=== PATIENT | female | born 1985 | race American Indian/Alaskan Native ===

== ENCOUNTER 2018-08-25 16:11 | Emergency (ER) | payer MEDICAID ==
[2018-08-25 17:50] LABS: BUN/Creatinine Ratio 18; Blood Urea Nitrogen 11 mg/dL (7-17); Calcium 8.5 mg/dL (8.4-10.2); Hemolysis Index 4
[2018-08-25] MEDS ORDERED: TYLENOL PO ONE (17:51)
[2018-08-25 17:52] LABS: Basophils # (Auto) 0.1 K/mm3 (0.0-0.1); Basophils % (Auto) 0.8 % (0.0-1.8); Eosinophils % (Auto) 0.4 % (0.0-4.3); Hematocrit 31.6 % (30.3-42.9); Lymphocytes # (Auto) 0.5 K/mm3 (1.2-5.4); Lymphocytes % (Auto) 8.5 % (13.4-35.0); Mean Corpuscular HGB Conc 32 % (30-34); Mean Corpuscular Volume 74 fl (79-97); Monocytes # (Auto) 0.7 K/mm3 (0.0-0.8); Monocytes % (Auto) 10.9 % (0.0-7.3); Platelet Count 260 K/mm3 (140-440); Red Blood Count 4.29 M/mm3 (3.65-5.03); Red Cell Distribution Width 17.5 % (13.2-15.2)
[2018-08-25] MEDS ORDERED: TYLENOL ONE (17:54)
--- NOTE | 2018-08-25 18:03 | XRay Report ---
FINAL REPORT EXAM: XR CHEST ROUTINE 2V HISTORY: shortness of breath TECHNIQUE: PA and lateral views of the chest Comparison: None FINDINGS: There is bilateral hypoinflation with crowding of the bronchovascular structures. There prominence of the interstitial markings with peribronchial thickening. This may represent cosby es of bronchiolitis. There is no definite evidence of focal infiltrate and no evidence of pneumothorax or pleural fluid co llection. The cardiomediastinal silhouette is normal in appearance. The bony structures are unremarkable. IMPRESSION: 1. Hypoinflation. 2. Prominence of the interstitial markings with peribronchial thickening which may represent changes of bronchiolitis. If further imaging is required, CT chest may be helpful.
[2018-08-25] MEDS ORDERED: TESSALON PERLES PO ONE ×2 (18:29→21:37)
[2018-08-25] MEDS ORDERED: ZITHROMAX PO ONE (18:29)
[2018-08-25] MEDS ORDERED: NACL 0.9% 1000 ML 1,000 ML IV ONE (18:29)
[2018-08-25] MEDS ORDERED: TORADOL IV ONE (18:29)
--- NOTE | 2018-08-25 18:33 | Emergency Department Report ---
- General Chief Complaint: Upper Respiratory Infection Stated Complaint: FLU SYMPTOMS Time Seen by Provider: 08/25/18 18:22 Source: patient Mode of arrival: Ambulatory Limitations: No Limitations - History of Present Illness Initial Comments: 32-year-old female with no symptoms past medical history presents to the hospital complaining of cough and cold symptoms 3 days. Patient will cough productive of green sputum. Generalized body aches rated 9/10 in intensity. Chest pain with coughing episodes. Bitemporal headache reported. Intermittent fevers at home reported. Patient presents today with a fever. She denies receiving her flu shot, known sick contacts, or recent international travel. She denies wheezing, shortness of breath, nausea, vomiting, or diarrhea. She did not receive a flu shot this year. - Related Data Previous Rx's Medication Instructions Recorded Last Taken Type Azithromycin [Zithromax Z-NYDIA] 1 dose PO DAILY 5 Days tab 08/25/18 Unknown Rx Benzonatate [Tessalon Perles] 100 mg PO Q8HR PRN #30 capsule 08/25/18 Unknown Rx Oseltamivir [Tamiflu] 75 mg PO BID #10 cap 08/25/18 Unknown Rx traMADol [Ultram 50 MG tab] 50 mg PO Q6HR PRN #20 tablet 08/25/18 Unknown Rx Allergies Allergy/AdvReac Type Severity Reaction Status Date / Time No Known Allergies Allergy Unverified 08/25/18 16:45 ED Review of Systems ROS: Stated complaint: FLU SYMPTOMS Other details as noted in HPI Comment: All other systems reviewed and negative ED Past Medical Hx - Past Medical History Previous Medical History?: Yes - Surgical History Past Surgical History?: Yes Additional Surgical History: 'Tummy tuck' - Social History Smoking Status: Current Every Day Smoker Substance Use Type: Non Opiate Pain, Other - Medications Home Medications: Home Medications Medication Instructions Recorded Confirmed Last Taken Type Azithromycin [Zithromax Z-NYDIA] 1 dose PO DAILY 5 Days tab 08/25/18 Unknown Rx Benzonatate [Tessalon Perles] 100 mg PO Q8HR PRN #30 capsule 08/25/18 Unknown Rx Oseltamivir [Tamiflu] 75 mg PO BID #10 cap 08/25/18 Unknown Rx traMADol [Ultram 50 MG tab] 50 mg PO Q6HR PRN #20 tablet 08/25/18 Unknown Rx ED Physical Exam - General Limitations: No Limitations - Other Other exam information: General: No limitations, patient is alert in no acute distress Head exam: Atraumatic, normocephalic Eyes exam: Normal appearance, pupils equal reactive to light, extraocular movements intact ENT: Moist mucous membrane. No frontal or maxillary sinus tenderness Neck exam: Normal inspection, full range of motion, no meningismus nontender Respiratory exam: Clear to auscultation bilateral, no wheezes, rales, crackles Cardiovascular: Tachycardic regular rhythm Abdomen: Soft, nondistended, and nontender, with normal bowel sounds, no fiordaliza ound, or guarding Extremity: Full range of motion normal inspection no deformity Back: Normal Inspection, full range of motion, no tenderness Neurologic: Alert, oriented x3, cranial nerves intact, no motor or sensory deficit Psychiatric: normal affect, normal mood Skin: Warm, dry, intact, no rash ED Course Vital Signs 08/25/18 08/25/18 08/25/18 16:45 18:53 19:00 Temperature 102.4 F H Pulse Rate 122 H Respiratory 20 16 16 Rate Blood Pressure 134/82 Blood Pressure [Left] O2 Sat by Pulse 100 99 Oximetry 08/25/18 08/25/18 19:26 21:33 Temperature 101.4 F H 99.4 F Pulse Rate 98 H 108 H Respiratory 16 16 Rate Blood Pressure Blood Pressure 125/78 118/72 [Left] O2 Sat by Pulse 100 99 Oximetry ED Medical Decision Making - Lab Data Result diagrams: 08/25/18 17:15 08/25/18 17:15 Lab Results 08/25/18 08/25/18 08/25/18 Range/Units 17:15 17:15 17:15 WBC 6.4 (4.5-11.0) K/mm3 RBC 4.29 (3.65-5.03) M/mm3 Hgb 10.0 L (10.1-14.3) gm/dl Hct 31.6 (30.3-42.9) % MCV 74 L (79-97) fl MCH 23 L (28-32) pg MCHC 32 (30-34) % RDW 17.5 H (13.2-15.2) % Plt Count 260 (140-440) K/mm3 Lymph % (Auto) 8.5 L (13.4-35.0) % [place] % (Auto) 10.9 H (0.0-7.3) % Eos % (Auto) 0.4 (0.0-4.3) % Baso % (Auto) 0.8 (0.0-1.8) % Lymph # 0.5 L (1.2-5.4) K/mm3 [place] # 0.7 (0.0-0.8) K/mm3 Eos # 0.0 (0.0-0.4) K/mm3 Baso # 0.1 (0.0-0.1) K/mm3 Seg Neutrophils % 79.4 H (40.0-70.0) % Seg Neutrophils # 5.1 (1.8-7.7) K/mm3 Sodium 136 L (137-145) mmol/L Potassium 3.6 (3.6-5.0) mmol/L Chloride 99.7 (98-107) mmol/L Carbon Dioxide 24 (22-30) mmol/L Anion Gap 16 mmol/L BUN 11 (7-17) mg/dL Creatinine 0.6 L (0.7-1.2) mg/dL Estimated GFR > 60 ml/min BUN/Creatinine Ratio 18 % Glucose 100 (65-100) mg/dL Lactic Acid 1.50 (0.7-2.0) mmol/L Calcium 8.5 (8.4-10.2) mg/dL Influenza A (Rapid) (Negative) Influenza B (Rapid) (Negative) 08/25/18 Range/Units 18:20 WBC (4.5-11.0) K/mm3 RBC (3.65-5.03) M/mm3 Hgb (10.1-14.3) gm/dl Hct (30.3-42.9) % MCV (79-97) fl MCH (28-32) pg MCHC (30-34) % RDW (13.2-15.2) % Plt Count (140-440) K/mm3 Lymph % (Auto) (13.4-35.0) % [place] % (Auto) (0.0-7.3) % Eos % (Auto) (0.0-4.3) % Baso % (Auto) (0.0-1.8) % Lymph # (1.2-5.4) K/mm3 [place] # (0.0-0.8) K/mm3 Eos # (0.0-0.4) K/mm3 Baso # (0.0-0.1) K/mm3 Seg Neutrophils % (40.0-70.0) % Seg Neutrophils # (1.8-7.7) K/mm3 Sodium (137-145) mmol/L Potassium (3.6-5.0) mmol/L Chloride (98-107) mmol/L Carbon Dioxide (22-30) mmol/L Anion Gap mmol/L BUN (7-17) mg/dL Creatinine (0.7-1.2) mg/dL Estimated GFR ml/min BUN/Creatinine Ratio % Glucose (65-100) mg/dL Lactic Acid (0.7-2.0) mmol/L Calcium (8.4-10.2) mg/dL Influenza A (Rapid) Positive A (Negative) Influenza B (Rapid) Negative (Negative) - Radiology Data Radiology results: report reviewed FINAL REPORT EXAM: XR CHEST ROUTINE 2V HISTORY: shortness of breath TECHNIQUE: PA and lateral views of the chest Comparison: None FINDINGS: There is bilateral hypoinflation with crowding of the bronchovascular structures. There prominence of the interstitial markings with peribronchial thickening. This may represent changes of bronchiolitis. There is no definite evidence of focal infiltrate and no evidence of pneumothorax or pleural fluid collection. The cardiomediastinal silhouette is normal in appearance. The bony structures are unremarkable. IMPRESSION: 1. Hypoinflation. 2. Prominence of the interstitial markings with peribronchial thickening which may represent changes of bronchiolitis. If further imaging is required, CT chest may be helpful. - Medical Decision Making Influenza positive. Patient will be prescribed Tamiflu. Also, with a Z-Nydia given chest x-ray findings although likely viral. Patient does not have wheezing, shortness of breath or hypoxia. Follow-up will be encouraged. - Differential Diagnosis viral syndrome, influenza, pneumonia, bronchitis, URI Critical Care Time: No Critical care attestation.: If time is entered above; I have spent that time in minutes in the direct care of this critically ill patient, excluding procedure time. ED Disposition Clinical Impression: Influenza A, Bronchiolitis Disposition: DC- TO HOME OR SELFCARE Is pt being admited?: No Does the pt Need Aspirin: No Condition: Stable Instructions: Influenza (ED) Additional Instructions: Take the medication as prescribed. Follow up with your doctor or the doctors/clinic provided. Return if symptoms worsen as indicated by your discharge instructions Prescriptions: Azithromycin [Zithromax Z-NYDIA] 1 dose PO DAILY 5 Days tab Benzonatate [Tessalon Perles] 100 mg PO Q8HR PRN #30 capsule PRN Reason: Cough Oseltamivir [Tamiflu] 75 mg PO BID #10 cap traMADol [Ultram 50 MG tab] 50 mg PO Q6HR PRN #20 tablet PRN Reason: Pain Referrals: PRIMARY CARE, [Primary Care Provider] - 3-5 Days [facility] [Provider Group] - 3-5 Days TY CROCKER [Staff Physician] - 3-5 Days Time of Disposition: 22:48
[2018-08-25] MEDS ORDERED: DILAUDID IV ONE (22:52)
[2018-08-25 23:54] VITALS: BP 120/74
== END 2018-08-25 23:54 | disposition home or self-care (01) ==
LOC: ED 16:11
DX: J09.X2 Influenza due to identified novel influenza A virus with other respiratory manifestations (principal); J21.9 Acute bronchiolitis, unspecified; F17.200 Nicotine dependence, unspecified, uncomplicated
CPT/HCPCS: 36415; 71046; 80048; 82140; 85025; 87040; 87400; 93005; 93010; 96374; 99284; J1885; J7030; 96361

== ENCOUNTER 2019-09-21 22:41 | Emergency (ER) | payer MEDICAID ==
[2019-09-22 05:20] VITALS: BP 139/91
[2019-09-22] MEDS ORDERED: BENZONATATE 100 MG CAP PO ONE (07:24)
[2019-09-22] MEDS ORDERED: IBUPROFEN 800 MG TAB PO ONE (07:24)
--- NOTE | 2019-09-22 08:24 | XRay Report ---
CHEST 2 VIEWS INDICATION / CLINICAL INFORMATION: cough. COMPARISON: 08/25/2018. FINDINGS: SUPPORT DEVICES: None. HEART / MEDIASTINUM: No significant abnormality. LUNGS / PLEURA: There is mild groundglass parenchymal opacification in the right lower lung. No signi ficant effusion. No pneumothorax. ADDITIONAL FINDINGS: No significant additional findings. IMPRESSION: 1. Mild groundglass parenchymal opacification in the right lower lung can indicate developing infecti ous or inflammatory process. Signer Name: Hector Samaniego MD Signed: 09/22/2019 8:19 AM Workstation Name: [id number]
--- NOTE | 2019-09-22 08:48 | Emergency Department Report ---
Upper Respiratory HPI - HPI Chief Complaint: Upper Respiratory Infection Stated Complaint: COUGH/HEADACHE Time Seen by Provider: 09/22/19 07:23 Duration: 1 Day URI Symptoms: Rhinorrhea: Yes, Sore Throat: No, Ear Pain: Yes, Cough: Yes, Shortness of Breath: No, Sick Contacts: No, Unable to Take Fluids: No, Urine Output Abnormal: No, Listless Behavior: No Other History: This is a 34-year-old female nontoxic, well nourished in appearance, no acute signs of distress presents to the ED with c/o of productive cough, earache, frontal sinus pain, body aches, rhinorrhea, nasal congestion x1 day. Patient describes productive cough as yellow mucus production. Patient denies any sick contacts. Patient denies any recent travels, long car, recent hospital stays. Patient denies any calf pain or calf tenderness. Patient denies any chest pain, short of breath, fever, chills, nausea, vomiting, hemoptysis, numbness, tingling, headache or stiff neck. Patient denies any allergies or significant PMH. - Home Meds and Allergies Home Medications: Previous Rx's Medication Instructions Recorded Last Taken Type Azithromycin [Zithromax Z-NYDIA] 1 dose PO DAILY 5 Days tab 08/25/18 Unknown Rx Benzonatate [Tessalon Perles] 100 mg PO Q8HR PRN #30 capsule 08/25/18 Unknown Rx Oseltamivir [Tamiflu] 75 mg PO BID #10 cap 08/25/18 Unknown Rx traMADoL [Ultram 50 MG tab] 50 mg PO Q6HR PRN #20 tablet 08/25/18 Unknown Rx Azithromycin [Zithromax Z-NYDIA] 250 mg PO DAILY #6 tablet 09/22/19 Unknown Rx Benzonatate [Tessalon Perles] 100 mg PO Q8HR PRN #20 capsule 09/22/19 Unknown Rx Ibuprofen [Motrin] 600 mg PO Q8H PRN #20 tablet 09/22/19 Unknown Rx Allergies/Adverse Reactions: Allergies Allergy/AdvReac Type Severity Reaction Status Date / Time No Known Allergies Allergy Unverified 08/25/18 16:45 ED Review of Systems ROS: Stated complaint: COUGH/HEADACHE Other details as noted in HPI Constitutional: denies: chills, fever Eyes: denies: eye pain, eye discharge, vision change ENT: ear pain, congestion. denies: throat pain Respiratory: cough. denies: shortness of breath, wheezing Cardiovascular: denies: chest pain, palpitations Endocrine: no symptoms reported Gastrointestinal: denies: abdominal pain, nausea, diarrhea Genitourinary: denies: urgency, dysuria, discharge Musculoskeletal: denies: back pain, joint swelling, arthralgia Skin: denies: rash, lesions Neurological: denies: headache, weakness, paresthesias Psychiatric: denies: anxiety, depression Hematological/Lymphatic: denies: easy bleeding, easy bruising ED Past Medical Hx - Past Medical History Previous Medical History?: No - Surgical History Past Surgical History?: Yes Additional Surgical History: 'Tummy tuck' - Social History Smoking Status: Current Every Day Smoker Substance Use Type: None - Medications Home Medications: Home Medications Medication Instructions Recorded Confirmed Last Taken Type Azithromycin [Zithromax Z-NYDIA] 1 dose PO DAILY 5 Days tab 08/25/18 Unknown Rx Benzonatate [Tessalon Perles] 100 mg PO Q8HR PRN #30 capsule 08/25/18 Unknown Rx Oseltamivir [Tamiflu] 75 mg PO BID #10 cap 08/25/18 Unknown Rx traMADoL [Ultram 50 MG tab] 50 mg PO Q6HR PRN #20 tablet 08/25/18 Unknown Rx Azithromycin [Zithromax Z-NYDIA] 250 mg PO DAILY #6 tablet 09/22/19 Unknown Rx Benzonatate [Tessalon Perles] 100 mg PO Q8HR PRN #20 capsule 09/22/19 Unknown Rx Ibuprofen [Motrin] 600 mg PO Q8H PRN #20 tablet 09/22/19 Unknown Rx ED Bronchiolitis Physical Exam - Exam General: Vital signs noted. No distress. Alert and acting appropriately. Neurologic: Alert and oriented, no deficits. Musculoskeletal: Unremarkable. ED Bronchiolitis Tests - Testing Testing: CXR: Normal/Negative ED Physical Exam - General Limitations: No Limitations General appearance: alert, in no apparent distress - Head Head exam: Present: atraumatic, normocephalic - Eye Eye exam: Present: normal appearance - Expanded ENT Exam Expanded Ear exam: Present: normal external inspection TM/Canal exam: Erythema: Right TM, Bulging: Right TM Mouth exam: Present: normal external inspection Teeth exam: Present: normal inspection Throat exam: Positive: normal inspection. Negative: tonsillar erythema, tonsillomegaly, tonsillar exudate, R peritonsillar mass, L peritonsillar mass - Neck Neck exam: Present: normal inspection, full ROM. Absent: tenderness, meningismus, lymphadenopathy - Respiratory Respiratory exam: Present: normal lung sounds bilaterally. Absent: respiratory distress, wheezes, rales, rhonchi, stridor, chest wall tenderness, accessory muscle use, decreased breath sounds, prolonged expiratory - Cardiovascular Cardiovascular Exam: Present: regular rate, normal rhythm, normal heart sounds. Absent: irregular rhythm, systolic murmur, diastolic murmur, rubs, gallop - Extremities Exam Extremities exam: Present: normal inspection, full ROM - Back Exam Back exam: Present: normal inspection, full ROM - Neurological Exam Neurological exam: Present: alert, oriented X3, normal gait - Psychiatric Psychiatric exam: Present: normal affect, normal mood - Skin Skin exam: Present: warm, dry, intact, normal color. Absent: rash ED Course Vital Signs 09/21/19 09/22/19 23:15 05:17 Temperature 98.8 F 97.7 F Pulse Rate 96 H 89 Respiratory 18 16 Rate Blood Pressure 147/87 139/91 O2 Sat by Pulse 100 99 Oximetry - Reevaluation(s) Reevaluation #1: 09/22/19 08:49 Patient is speaking in full sentences with no signs of distress noted. ED Medical Decision Making - Medical Decision Making This is a 34-year-old female that presents with bronchitis and otitis media. Patient is stable and was examined by me. Chest x-ray has been obtained and dictated by radiologist with normal exam. Patient is notified of x-ray results with no questions noted. Will treat patient with zpak. Patient was instructed to increase hydration, rest and take Motrin for fever episodes. Patient received motrin and tesslone perrls in the ED. Vitals stable. Patient is nonfebrile and normal heart rate. Patient was instructed Follow-up with a primary care doctor in 3-5 days or if symptoms worsen and continue return to emergency room as soon as possible. At time time of discharge, the patient does not seem toxic or ill in appearance. No acute signs of distress noted. Patient agrees to discharge treatment plan of care. No further questions noted by the patient. Critical care attestation.: If time is entered above; I have spent that time in minutes in the direct care of this critically ill patient, excluding procedure time. ED Disposition Clinical Impression: Bronchitis Otitis media Qualifiers: Otitis media type: unspecified Chronicity: acute Qualified Code(s): H66.90 - Otitis media, unspecified, unspecified ear Disposition: - TO HOME OR SELFCARE Is pt being admited?: No Does the pt Need Aspirin: No Condition: Stable Instructions: Acute Bronchitis (ED), Otitis Media (ED) Additional Instructions: Follow-up with a primary care doctor in 3-5 days or if symptoms worsen and continue return to emergency room as soon as possible. Prescriptions: Ibuprofen [Motrin] 600 mg PO Q8H PRN #20 tablet PRN Reason: Pain/Fever Benzonatate [Tessalon Perles] 100 mg PO Q8HR PRN #20 capsule PRN Reason: Cough Azithromycin [Zithromax Z-NYDIA] 250 mg PO DAILY #6 tablet Referrals: PRIMARY MD NINA [Primary Care Provider] - 3-5 Days TY CROCKER MD [Staff Physician] - 3-5 Days [facility] [Outside] - 3-5 Days Forms: Work/School Release Form(ED)
== END 2019-09-22 09:05 | disposition home or self-care (01) ==
LOC: ED 22:41
DX: J40 Bronchitis, not specified as acute or chronic (principal); H66.90 Otitis media, unspecified, unspecified ear; F17.200 Nicotine dependence, unspecified, uncomplicated; Z79.1 Long term (current) use of non-steroidal anti-inflammatories (NSAID); Z79.899 Other long term (current) drug therapy
CPT/HCPCS: 71046

== ENCOUNTER 2020-04-19 15:23 | Emergency (ER) | payer BC, MEDICAID ==
[2020-04-19 16:37] VITALS: BP 155/92
--- NOTE | 2020-04-19 17:13 | Event Note ---
ED Screening Note Date of service: 04/19/20 Time: 17:12 ED Screening Note: 34-year-old female presents the ED complaining of lower abdominal/pelvic pain x4 days. LMP: 03/24/2020 Denies fever, meds nausea and diarrhea This initial assessment/diagnostic orders/clinical plan/treatment(s) is/are subject to change based on patients health status, clinical progression and re- assessment by fellow clinical providers in the ED. Further treatment and workup at subsequent clinical providers discretion. Patient/guardian urged not to elope from the ED as their condition may be serious if not clinically assessed and managed. Initial orders include: ua,upt CBC, CMP
[2020-04-19 17:57] LABS: Basophils % (Auto) 0.5 % (0.0-1.8); Eosinophils # (Auto) 0.1 K/mm3 (0.0-0.4); Eosinophils % (Auto) 0.9 % (0.0-4.3); Hematocrit 28.5 % (30.3-42.9); Hemoglobin 9.5 gm/dl (10.1-14.3); Lymphocytes # (Auto) 1.9 K/mm3 (1.2-5.4); Lymphocytes % (Auto) 27.7 % (13.4-35.0); Mean Corpuscular HGB Conc 33 % (30-34); Monocytes # (Auto) 0.5 K/mm3 (0.0-0.8); Monocytes % (Auto) 7.2 % (0.0-7.3); Platelet Count 378 K/mm3 (140-440); Red Blood Count 4.31 M/mm3 (3.65-5.03)
[2020-04-19 18:34] LABS: Mean Corpuscular Volume 66 fl (79-97)
[2020-04-19 18:36] LABS: Alanine Aminotransferase 15 units/L (7-56); Albumin 3.9 g/dL (3.9-5); Blood Urea Nitrogen 13 mg/dL (7-17); Calcium 8.9 mg/dL (8.4-10.2); Hemolysis Index 3
[2020-04-19 18:37] LABS: BUN/Creatinine Ratio 22
[2020-04-19 19:42] LABS: Bilirubin,Urine NEG (Negative); Blood,Urine NEG (Negative); Color,Urine Yellow (Yellow); Mucus,Urine 3+ /HPF; Protein,Urine <15 mg/dL mg/dL (Negative); Urobilinogen,Urine < 2.0 mg/dL (<2.0)
[2020-04-19 19:50] LABS: HCG Qualitative,Urine Negative (Negative)
--- NOTE | 2020-04-19 20:18 | Emergency Department Report ---
ED General Adult HPI - General Chief complaint: Abdominal Pain Stated complaint: ABD PAIN Time Seen by Provider: 04/19/20 19:15 Source: patient Mode of arrival: Ambulatory Limitations: No Limitations - History of Present Illness Initial comments: 34-year-old -Armenian female patient without prior medical history presents with complaints of intermittent right lower quadrant pain x4 days. Patient states she has had 3 episodes of cramping pain in the right lower quadrant the last about 3 minutes at a time. She states she then has a bowel movement that is loose and not watery in a day and her pain is relieved. She denies any melena/hematochezia, nausea/vomiting, recent antibiotic use, or current abdominal pain. She states when the pain does come it is about a 5/10 in severity. She also denies any history of ovarian cysts, abnormal vaginal bleeding, vaginal discharge, dysuria/hematuria/urinary frequency, dyspareunia, or concern for STIs. Abdominal surgical history includes a tummy tuck in 2016 per patient -: Sudden Severity scale (0 -10): 0 - Related Data Previous Rx's Medication Instructions Recorded Last Taken Type Azithromycin [Zithromax Z-NYDIA] 1 dose PO DAILY 5 Days tab 08/25/18 Unknown Rx Benzonatate [Tessalon Perles] 100 mg PO Q8HR PRN #30 capsule 08/25/18 Unknown Rx Oseltamivir [Tamiflu] 75 mg PO BID #10 cap 08/25/18 Unknown Rx traMADoL [Ultram 50 MG tab] 50 mg PO Q6HR PRN #20 tablet 08/25/18 Unknown Rx Azithromycin [Zithromax Z-NYDIA] 250 mg PO DAILY #6 tablet 09/22/19 Unknown Rx Benzonatate [Tessalon Perles] 100 mg PO Q8HR PRN #20 capsule 09/22/19 Unknown Rx Ibuprofen [Motrin] 600 mg PO Q8H PRN #20 tablet 09/22/19 Unknown Rx Butalb/Acetaminophen/Caffeine 1 cap PO Q8HR PRN #12 cap 02/08/20 Unknown Rx [Fioricet 50-300-40 mg CAP] Dicyclomine [Bentyl] 20 mg PO QID PRN #20 tablet 04/19/20 Unknown Rx Allergies Allergy/AdvReac Type Severity Reaction Status Date / Time No Known Allergies Allergy Verified 08/31/20 16:34 ED Review of Systems ROS: Stated complaint: ABD PAIN Other details as noted in HPI Constitutional: denies: chills, diaphoresis, fever, malaise, weakness ENT: denies: throat pain Respiratory: denies: cough, shortness of breath Cardiovascular: denies: chest pain Endocrine: denies: excessive sweating Gastrointestinal: abdominal pain. denies: nausea, vomiting, diarrhea, constipation, hematemesis, melena, hematochezia Genitourinary: denies: urgency, dysuria, frequency, hematuria, discharge, abnormal menses Skin: denies: rash, lesions, change in color Neurological: denies: headache, paresthesias Hematological/Lymphatic: denies: easy bleeding, easy bruising, swollen glands ED Past Medical Hx - Past Medical History Previous Medical History?: No - Surgical History Past Surgical History?: Yes Additional Surgical History: 'Tummy tuck' - Social History Smoking Status: Never Smoker Substance Use Type: None - Medications Home Medications: Home Medications Medication Instructions Recorded Confirmed Last Taken Type Azithromycin [Zithromax Z-NYDIA] 1 dose PO DAILY 5 Days tab 08/25/18 Unknown Rx Benzonatate [Tessalon Perles] 100 mg PO Q8HR PRN #30 capsule 08/25/18 Unknown Rx Oseltamivir [Tamiflu] 75 mg PO BID #10 cap 08/25/18 Unknown Rx traMADoL [Ultram 50 MG tab] 50 mg PO Q6HR PRN #20 tablet 08/25/18 Unknown Rx Azithromycin [Zithromax Z-NYDIA] 250 mg PO DAILY #6 tablet 09/22/19 Unknown Rx Benzonatate [Tessalon Perles] 100 mg PO Q8HR PRN #20 capsule 09/22/19 Unknown Rx Ibuprofen [Motrin] 600 mg PO Q8H PRN #20 tablet 09/22/19 Unknown Rx Butalb/Acetaminophen/Caffeine 1 cap PO Q8HR PRN #12 cap 02/08/20 Unknown Rx [Fioricet 50-300-40 mg CAP] Dicyclomine [Bentyl] 20 mg PO QID PRN #20 tablet 04/19/20 Unknown Rx ED Physical Exam - General Limitations: No Limitations General appearance: alert, in no apparent distress, obese - Head Head exam: Present: atraumatic, normocephalic - Eye Eye exam: Present: normal appearance. Absent: scleral icterus - Respiratory Respiratory exam: Present: normal lung sounds bilaterally. Absent: respiratory distress - Cardiovascular Cardiovascular Exam: Present: regular rate, normal rhythm. Absent: systolic murmur, diastolic murmur, rubs, gallop - GI/Abdominal GI/Abdominal exam: Present: soft, normal bowel sounds. Absent: distended, te nderness, guarding, rebound, rigid - Extremities Exam Extremities exam: Present: normal inspection - Back Exam Back exam: Present: normal inspection, full ROM. Absent: CVA tenderness (R), CVA tenderness (L) - Neurological Exam Neurological exam: Present: alert, oriented X3 - Psychiatric Psychiatric exam: Present: normal affect, normal mood - Skin Skin exam: Present: warm, dry, intact, normal color. Absent: rash, cyanosis, diaphoretic, erythema, petechiae, pallor, ecchymosis ED Course Vital Signs 04/19/20 16:34 Temperature 97.8 F Pulse Rate 101 H Respiratory 18 Rate Blood Pressure 155/92 [Right] O2 Sat by Pulse 99 Oximetry ED Medical Decision Making - Lab Data Result diagrams: 04/19/20 17:31 04/19/20 17:31 Lab Results 04/19/20 04/19/20 04/19/20 Range/Units 17:31 17:31 18:37 WBC 6.9 (4.5-11.0) K/mm3 RBC 4.31 (3.65-5.03) M/mm3 Hgb 9.5 L (10.1-14.3) gm/dl Hct 28.5 L (30.3-42.9) % MCV 66 L (79-97) fl MCH 22 L (28-32) pg MCHC 33 (30-34) % RDW 19.0 H (13.2-15.2) % Plt Count 378 (140-440) K/mm3 Lymph % (Auto) 27.7 (13.4-35.0) % [place] % (Auto) 7.2 (0.0-7.3) % Eos % (Auto) 0.9 (0.0-4.3) % Baso % (Auto) 0.5 (0.0-1.8) % Lymph # 1.9 (1.2-5.4) K/mm3 [place] # 0.5 (0.0-0.8) K/mm3 Eos # 0.1 (0.0-0.4) K/mm3 Baso # 0.0 (0.0-0.1) K/mm3 Seg Neutrophils % 63.7 (40.0-70.0) % Seg Neutrophils # 4.4 (1.8-7.7) K/mm3 Sodium 139 (137-145) mmol/L Potassium 4.0 (3.6-5.0) mmol/L Chloride 102.5 (98-107) mmol/L Carbon Dioxide 26 (22-30) mmol/L Anion Gap 15 mmol/L BUN 13 (7-17) mg/dL Creatinine 0.6 (0.6-1.2) mg/dL Estimated GFR > 60 ml/min BUN/Creatinine Ratio 22 % Glucose 101 H (65-100) mg/dL Calcium 8.9 (8.4-10.2) mg/dL Total Bilirubin 0.20 (0.1-1.2) mg/dL AST 16 (5-40) units/L ALT 15 (7-56) units/L Alkaline Phosphatase 57 (35-129) units/L Total Protein 7.3 (6.3-8.2) g/dL Albumin 3.9 (3.9-5) g/dL Albumin/Globulin Ratio 1.1 % Urine Color Yellow (Yellow) Urine Turbidity Slightly-cloudy (Clear) Urine pH 6.0 (5.0-7.0) Ur Specific [place] 1.024 (1.003-1.030) Urine Protein <15 mg/dl (Negative) mg/dL Urine Glucose (UA) Neg (Negative) mg/dL Urine Ketones Neg (Negative) mg/dL Urine Blood Neg (Negative) Urine Nitrite Neg (Negative) Urine Bilirubin Neg (Negative) Urine Urobilinogen < 2.0 (<2.0) mg/dL Ur Leukocyte Esterase Neg (Negative) Urine WBC (Auto) 2.0 (0.0-6.0) /HPF Urine RBC (Auto) 5.0 (0.0-6.0) /HPF U Epithel Cells (Auto) 16.0 H (0-13.0) /HPF Urine Mucus 3+ /HPF Urine HCG, Qual Negative (Negative) - Medical Decision Making Patient here with complaints of three 3-minute episodes of right lower quadrant pain over the past 4 days that is relieved with bowel movement. No significant abnormalities are noted on CBC or CMP. UA is normal. Patient has no abdominal tenderness on exam. Heart rate repeated and noted to be 88 bpm. Her vitals are normal and she is well-appearing. Patient is stable for discharge home and follow-up with her PCP. Suspect possible irritable bowel syndrome/disease. Prescription for Bentyl given. Discussed in great detail with patient signs and symptoms that should prompt immediate return to the emergency department, she verbalizes understanding. Critical care attestation.: If time is entered above; I have spent that time in minutes in the direct care of this critically ill patient, excluding procedure time. ED Disposition Clinical Impression: Intermittent lower abdominal pain Disposition: DC-01 TO HOME OR SELFCARE Is pt being admited?: No Condition: Stable Instructions: Irritable Bowel Syndrome (ED), Abdominal Pain (ED) Prescriptions: Dicyclomine [Bentyl] 20 mg PO QID PRN #20 tablet PRN Reason: abdominal cramping Referrals: TY CROCKER MD [Staff Physician] - 2-3 Days Forms: Work/School Release Form(ED)
== END 2020-04-19 20:30 | disposition home or self-care (01) ==
LOC: ED 15:23
DX: R10.31 Right lower quadrant pain (principal); Z79.899 Other long term (current) drug therapy
CPT/HCPCS: 36415; 80053; 81001; 81025; 85025; 99283

== ENCOUNTER 2020-11-13 15:39 | Emergency (ER) | payer BC, MEDICAID ==
[2020-11-13] MEDS ORDERED: ACETAMINOPHEN 325 MG TAB PO ONE (17:09)
--- NOTE | 2020-11-13 17:13 | Emergency Department Report ---
ED General Adult HPI - General Chief complaint: Headache Stated complaint: HEADACHE X2DAYS Time Seen by Provider: 11/13/20 17:08 Source: patient Mode of arrival: Ambulatory Limitations: No Limitations - History of Present Illness Initial comments: 35-year-old female reports to the emergency room with complaint of headache facial pain x2 days and right eye swollen this morning. She has not taken anything at home for her symptoms. She complains of her nose being congested. she denies cough and runny nose she has no fever no nausea no vomiting no loss of taste and smell no abdominal pain no diarrhea no chest pain no shortness of breath. No visual no visual changes such as blurry or double vision. No weakness in her upper or lower extremities. She reports no known sick contacts. She denies any significant past medical history. Patient is well-appearing in no acute distress -: days(s) (2) Location: head, face Radiation: non-radiation Improves with: none Worsens with: none Associated Symptoms: denies other symptoms, other. denies: confusion, chest pain, cough, diaphoresis, fever/chills, loss of appetite, malaise, nausea/vomiting Treatments Prior to Arrival: none (Nasal congestion) - Related Data Previous Rx's Medication Instructions Recorded Last Taken Type Azithromycin [Zithromax Z-NYDIA] 1 dose PO DAILY 5 Days tab 08/25/18 Unknown Rx Benzonatate [Tessalon Perles] 100 mg PO Q8HR PRN #30 capsule 08/25/18 Unknown Rx Oseltamivir [Tamiflu] 75 mg PO BID #10 cap 08/25/18 Unknown Rx traMADoL [Ultram 50 MG tab] 50 mg PO Q6HR PRN #20 tablet 08/25/18 Unknown Rx Azithromycin [Zithromax Z-NYDIA] 250 mg PO DAILY #6 tablet 09/22/19 Unknown Rx Benzonatate [Tessalon Perles] 100 mg PO Q8HR PRN #20 capsule 09/22/19 Unknown Rx Ibuprofen [Motrin] 600 mg PO Q8H PRN #20 tablet 09/22/19 Unknown Rx Butalb/Acetaminophen/Caffeine 1 cap PO Q8HR PRN #12 cap 02/08/20 Unknown Rx [Fioricet 50-300-40 mg CAP] Dicyclomine [Bentyl] 20 mg PO QID PRN #20 tablet 04/19/20 Unknown Rx Nystas/Diphen/Xyl Visc/Mylanta 30 ml MM Q6HR PRN #210 ml 04/30/20 Unknown Rx [Magic Mouthwash] Penicillin Vk [Veetids TAB] 500 mg PO BID 7 Days #28 tablet 04/30/20 Unknown Rx Amoxicillin [Amoxicillin TAB] 875 mg PO BID 10 Days #20 tablet 11/13/20 Unknown Rx Allergies Allergy/AdvReac Type Severity Reaction Status Date / Time No Known Allergies Allergy Verified 04/30/20 07:59 ED Review of Systems ROS: Stated complaint: HEADACHE X2DAYS Other details as noted in HPI Comment: All other systems reviewed and negative Constitutional: no symptoms reported Eyes: denies: eye pain, eye discharge, vision change ENT: congestion. denies: ear pain, throat pain Respiratory: denies: cough, orthopnea Endocrine: no symptoms reported Gastrointestinal: denies: abdominal pain, nausea, vomiting Musculoskeletal: denies: back pain Skin: denies: as per HPI, rash Neurological: headache. denies: numbness, confusion, abnormal gait, vertigo, other Psychiatric: denies: anxiety, depression, auditory hallucinations, visual hallucinations, homicidal thoughts, suicidal thoughts ED Past Medical Hx - Past Medical History Previous Medical History?: No - Surgical History Past Surgical History?: Yes Additional Surgical History: 'Tummy tuck' - Social History Smoking Status: Never Smoker Substance Use Type: Alcohol - Medications Home Medications: Home Medications Medication Instructions Recorded Confirmed Last Taken Type Azithromycin [Zithromax Z-NYDIA] 1 dose PO DAILY 5 Days tab 08/25/18 Unknown Rx Benzonatate [Tessalon Perles] 100 mg PO Q8HR PRN #30 capsule 08/25/18 Unknown Rx Oseltamivir [Tamiflu] 75 mg PO BID #10 cap 08/25/18 Unknown Rx traMADoL [Ultram 50 MG tab] 50 mg PO Q6HR PRN #20 tablet 08/25/18 Unknown Rx Azithromycin [Zithromax Z-NYDIA] 250 mg PO DAILY #6 tablet 09/22/19 Unknown Rx Benzonatate [Tessalon Perles] 100 mg PO Q8HR PRN #20 capsule 09/22/19 Unknown Rx Ibuprofen [Motrin] 600 mg PO Q8H PRN #20 tablet 09/22/19 Unknown Rx Butalb/Acetaminophen/Caffeine 1 cap PO Q8HR PRN #12 cap 02/08/20 Unknown Rx [Fioricet 50-300-40 mg CAP] Dicyclomine [Bentyl] 20 mg PO QID PRN #20 tablet 04/19/20 Unknown Rx Nystas/Diphen/Xyl Visc/Mylanta 30 ml MM Q6HR PRN #210 ml 04/30/20 Unknown Rx [Magic Mouthwash] Penicillin Vk [Veetids TAB] 500 mg PO BID 7 Days #28 tablet 04/30/20 Unknown Rx Amoxicillin [Amoxicillin TAB] 875 mg PO BID 10 Days #20 tablet 11/13/20 Unknown Rx ED Physical Exam - General Limitations: No Limitations General appearance: alert, in no apparent distress - Head Head exam: Present: atraumatic - Eye Eye exam: Present: normal appearance, EOMI. Absent: conjunctival injection, periorbital swelling, periorbital tenderness - ENT ENT exam: Present: normal exam, normal orophraynx, mucous membranes moist, TM's normal bilaterally, other (Right nare turbinate is pale and enlarged maxillary sinuses tender bilaterally frontal sinus nontender) - Neck Neck exam: Present: normal inspection - Respiratory Respiratory exam: Present: normal lung sounds bilaterally - Cardiovascular Cardiovascular Exam: Present: regular rate, normal heart sounds - Extremities Exam Extremities exam: Present: normal inspection - Back Exam Back exam: Present: normal inspection - Neurological Exam Neurological exam: Present: alert, oriented X3 - Psychiatric Psychiatric exam: Present: normal affect - Skin Skin exam: Present: warm, dry, intact, normal color ED Course Vital Signs 11/13/20 11/13/20 16:37 17:29 Temperature 98.1 F Pulse Rate 74 82 Respiratory 16 18 Rate Blood Pressure 140/93 Blood Pressure 142/90 [Left] O2 Sat by Pulse 99 100 Oximetry ED Medical Decision Making - Medical Decision Making 35-year-old female with a 2-day complaint of headache and nasal congestion. On examination she was found to have maxillary sinus tenderness her right nare had pale and enlarged turbinate with clear nasal discharge. Neurologically she is intact clear speech muscle strength equal no neurological deficits. She is well-appearing in no distress I discussed with patient the need to do a Covid testing outside plan to treat her for acute sinusitis and patient to get outpatient Covid testing - Differential Diagnosis Acute sinusitis allergic rhinitis COVID-19 Critical Care Time: No Critical care attestation.: If time is entered above; I have spent that time in minutes in the direct care of this critically ill patient, excluding procedure time. ED Disposition Clinical Impression: Maxillary sinusitis, acute Qualifiers: Recurrence: not specified as recurrent Qualified Code(s): J01.00 - Acute maxillary sinusitis, unspecified Headache Qualifiers: Headache type: tension-type Headache chronicity pattern: unspecified pattern Disposition: - TO HOME OR SELFCARE Is pt being admited?: No Does the pt Need Aspirin: No Condition: Stable Instructions: Sinusitis, Adult, [id number], General Headache Without Cause, [id number], How to Perform a Sinus Rinse Additional Instructions: Your examination today shows maxillary sinusitis. Take antibiotic as prescribed until completely finished it is okay for you to use [id number] decongestant such as Sudafed or Mucinex D can be purchased at your local pharmacy and take as directed by package insert. drink lots of fluids rest follow-up with your primary care doctor in 3 to 5 days. Or return to the emergency room for any worsening symptoms such as worsening headache, dizziness double vision blurry vision inability to walk, fever. I also recommend that you get tested for COVID-19 at one of the local testing centers refer to the form of given you. Prescriptions: Amoxicillin [Amoxicillin TAB] 875 mg PO BID 10 Days #20 tablet Referrals: TY CROCKER MD [Staff Physician] - 3-5 Days Forms: Work/School Release Form(ED) Time of Disposition: 17:22
[2020-11-13 17:37] VITALS: BP 142/90
== END 2020-11-13 17:51 | disposition home or self-care (01) ==
LOC: ED 15:39
DX: J01.00 Acute maxillary sinusitis, unspecified (principal); Z79.899 Other long term (current) drug therapy
CPT/HCPCS: 99282

== ENCOUNTER 2020-11-22 21:47 | Emergency (ER) | payer BC, MEDICAID ==
[2020-11-23 00:12] VITALS: BP 138/79
--- NOTE | 2020-11-23 00:15 | Emergency Department Report ---
Chief Complaint: Upper Respiratory Infection Stated Complaint: DIFF BREATHNING Time Seen by Provider: 11/23/20 00:12 - HPI History of Present Illness: This is a healthy 35-year-old female who needs clearance to return back to work. Patient has had 2 days of sneezing cough nasal congestion. She denies fever. She denies chest pain or shortness of breath. She denies loss of taste or smell. Patient's had negative COVID-19 test 3 weeks ago. No known exposures. Or documentation provided. Medical screening exam performed. Patient does not have a life or limb threatening condition which needs further treatment evaluation. - Exam Vital Signs: Vital Signs 11/22/20 23:57 Temperature 98.1 F Pulse Rate 80 Respiratory 17 Rate Blood Pressure 138/79 O2 Sat by Pulse 99 Oximetry Physical Exam: No respiratory distress normal gait patient appears well. MSE screening note: Focused history and physical exam performed. Due to findings the following was ordered: ED Disposition for MSE Clinical Impression: Upper respiratory infection Disposition: Z-07 MED SCREENING EXAM-LEFT Is pt being admited?: No Does the pt Need Aspirin: No Condition: Stable Forms: Work/School Release Form(ED)
== END 2020-11-23 01:10 | disposition left against medical advice (07) ==
LOC: ED 21:47
DX: J06.9 Acute upper respiratory infection, unspecified (principal); Z53.21 Procedure and treatment not carried out due to patient leaving prior to being seen by health care provider